=== PATIENT | female | born 1970 | race Two or more races ===

== ENCOUNTER 2023-04-10 15:28 | Emergency (ER) | payer MEDICAID, OTHER ==
[~2023-04-10] VITALS: Ht 165.1 cm; Wt 90.1 kg
[2023-04-10] MEDS ORDERED: SODIUM CHLORIDE 0.9% 1,000 ML IVB ONE (16:30)
[2023-04-10] MEDS ORDERED: ONDANSETRON HCL 4 MG/2 ML VIAL IV ONE (16:30)
[2023-04-10] MEDS ORDERED: KETOROLAC TROMETH 30 MG/ML 1ML VIAL IV ONE (16:30)
[2023-04-10 16:31] LABS: Basophils # (auto) 0 10 ^3/uL (0-0.2); Basophils % (auto) 0.4 % (0.0-2.0); Eosinophils # (auto) 0.3 10 ^3/uL (0-0.8); Eosinophils % (auto) 2.9 % (0.0-7.0); Hematocrit 41.9 % (36.0-46.0); Hemoglobin 14.1 g/dL (12.2-16.2); Lymphocytes # (auto) 1.7 10 ^3/uL (0.4-5.4); Lymphocytes % (auto) 17.5 % (10.0-50.0); Mean Corpuscular Hgb Conc. 33.5 g/dL (32.0-36.0); Mean Corpuscular Volume 89.3 fL (80.0-100.0); Monocytes # (auto) 0.5 10 ^3/uL (0-1.3); Neutrophils # (auto) 7.3 10 ^3/uL (1.6-8.6); Neutrophils % (auto) 74.2 % (37.0-80.0); Nucleated Red Blood Cells % 0.1 %; Red Cell Distribution Width 13.3 % (11.8-14.3); White Blood Cell 9.9 10^3/uL (4.4-10.8)
[2023-04-10 16:45] LABS: Albumin 4.2 g/dL (3.4-5.0); BUN/Creatinine Ratio 14.1 (10.0-20.0); Calcium 8.9 mg/dL (8.5-10.1); Potassium 3.9 mmol/L (3.5-5.1)
[2023-04-10 16:47] LABS: Bilirubin, Total 2.6 mg/dL (0.2-1.0); Total Protein 8.3 g/dL (6.4-8.2)
[2023-04-10] MEDS ORDERED: IOHEXOL 300 MG/ML 100ML BOTTLE IJ ONE (17:29)
[2023-04-10 19:34] LABS: Urine Bacteria None Seen /hpf (None Seen); Urine WBC None Seen /hpf (0 - 5)
[2023-04-10 19:36] LABS: Magnesium 2.4 mg/dL (1.6-2.6)
[2023-04-10 19:47] LABS: Urine Clarity CLEAR (Clear); Urine Color Yellow (Yellow); Urine Protein, UAD Trace (Negative); Urine Specific Gravity 1.005 (1.001-1.035); Urine Urobilinogen Normal (Negative)
[2023-04-10 19:48] LABS: Urine Blood Normal /uL (Negative)
[2023-04-10 19:55] VITALS: BP 110/74; PULSE 75; RESP 18; TEMP 98; O2SAT 98
[2023-04-10] MEDS ORDERED: ZOFR4T PO (20:59)
[2023-04-10] MEDS ORDERED: DICY10CA PO (20:59)
== END 2023-04-10 21:20 | disposition home or self-care (01) ==
LOC: ER 15:28
DX: K52.9 Noninfective gastroenteritis and colitis, unspecified (principal); R10.13 Epigastric pain; R10.33 Periumbilical pain; E80.6 Other disorders of bilirubin metabolism; Z90.49 Acquired absence of other specified parts of digestive tract
CPT/HCPCS: 36415; 74177; 80053; 81001; 82248; 83605; 83690; 83735; 85025; 93005; 96361; 96374; 96375; 99285; J1885; J2405; J7030; Q9967